=== PATIENT | male | born 1990 ===

== ENCOUNTER 2021-11-09 09:41 | Emergency (ER) | payer OTHER ==
[2021-11-09] MEDS ORDERED: ONDANSETRON 4 MG/2 ML INJ IV ONE (10:35)
[2021-11-09] MEDS ORDERED: SODIUM CHLORIDE 0.9% 1000 ML 1,000 ML IV ONE (10:35)
[2021-11-09] MEDS ORDERED: FAMOTIDINE 20 MG TAB PO ONE (10:36)
--- NOTE | 2021-11-09 10:38 | Emergency Department Report ---
ED Abdominal Pain HPI - General Chief Complaint: Nausea/Vomiting/Diarrhea Stated Complaint: ABD PAIN/VOMITING PUI?: No Time Seen by Provider: 11/09/21 10:16 Source: patient Mode of arrival: Ambulatory Limitations: No Limitations - History of Present Illness Initial Comments: 31-year-old male presents to the ER today with complaints of epigastric pain. Patient states that his pain started about 1 week ago. He describes it as a constant nonradiating burning pain. He states that this morning he vomited about 5 times. He has noticed that when he would try to eat the pain would get worse. Patient states that he has had similar symptoms off and on in the past and typically when he takes Tums it helps but in the past week the Tums have not been helping. He states that his emesis is mainly been bilious. He denies any hematemesis or coffee-ground emesis. His last bowel movement was yesterday and normal. He states that he drinks alcohol socially. He does smoke tobacco but denies any illicit drug use. He denies any abdominal surgeries in the past. He denies any known history of PUD. MD Complaint: abdominal pain -: week(s) (1) - Related Data Previous Rx's Medication Instructions Recorded Last Taken Type Famotidine [Pepcid] 20 mg PO BID #30 tablet 11/09/21 Unknown Rx Ondansetron [Zofran Odt] 4 mg PO Q8HR PRN #15 tab.rapdis 11/09/21 Unknown Rx Pantoprazole [Protonix] 40 mg PO QDAY #30 tablet 11/09/21 Unknown Rx Sucralfate [Carafate] 1 gm PO Q6HR #60 tablet 11/09/21 Unknown Rx Allergies Allergy/AdvReac Type Severity Reaction Status Date / Time No Known Allergies Allergy Verified 11/09/21 10:08 ED Review of Systems ROS: Stated complaint: ABD PAIN/VOMITING Other details as noted in HPI Comment: All other systems reviewed and negative Constitutional: denies: chills, diaphoresis, fever, malaise, weakness Eyes: denies: eye pain, eye discharge, vision change ENT: denies: ear pain, throat pain Respiratory: denies: cough, shortness of breath, wheezing Cardiovascular: denies: chest pain, palpitations Gastrointestinal: abdominal pain, nausea, vomiting. denies: diarrhea, constipation, hematemesis, melena, hematochezia Genitourinary: denies: urgency, dysuria, frequency, hematuria, discharge, testicular pain, testicular mass Musculoskeletal: denies: back pain, joint swelling, arthralgia Skin: denies: rash, lesions, change in color, change in hair/nails, pruritus Neurological: denies: headache, weakness, numbness, paresthesias, confusion, abn ormal gait Psychiatric: denies: anxiety, depression, auditory hallucinations, visual hallucinations, homicidal thoughts, suicidal thoughts Hematological/Lymphatic: denies: easy bleeding, easy bruising, swollen glands ED Past Medical Hx - Past Medical History Previous Medical History?: No - Surgical History Past Surgical History?: No - Medications Home Medications: Home Medications Medication Instructions Recorded Confirmed Last Taken Type Famotidine [Pepcid] 20 mg PO BID #30 tablet 11/09/21 Unknown Rx Ondansetron [Zofran Odt] 4 mg PO Q8HR PRN #15 tab.rapdis 11/09/21 Unknown Rx Pantoprazole [Protonix] 40 mg PO QDAY #30 tablet 11/09/21 Unknown Rx Sucralfate [Carafate] 1 gm PO Q6HR #60 tablet 11/09/21 Unknown Rx ED Physical Exam - General Limitations: No Limitations General appearance: alert, in no apparent distress - Head Head exam: Present: atraumatic, normocephalic, normal inspection - Neck Neck exam: Present: normal inspection, full ROM. Absent: meningismus - Respiratory Respiratory exam: Present: normal lung sounds bilaterally. Absent: respiratory distress, wheezes, rales, rhonchi, stridor - Cardiovascular Cardiovascular Exam: Present: regular rate, normal rhythm, normal heart sounds - GI/Abdominal GI/Abdominal exam: Present: soft, tenderness (epigastric ). Absent: distended, guarding, rebound - Neurological Exam Neurological exam: Present: alert, oriented X3, CN II-XII intact, normal gait - Psychiatric Psychiatric exam: Present: normal affect, normal mood - Skin Skin exam: Present: intact ED Course Vital Signs 11/09/21 10:05 Temperature 98.7 F Pulse Rate 82 Respiratory 14 Rate Blood Pressure 133/81 O2 Sat by Pulse 98 Oximetry ED Medical Decision Making - Lab Data Result diagrams: 11/09/21 11:00 11/09/21 11:00 - Radiology Data Radiology results: report reviewed Patient: ISAAC HENRY MR#: [id number] : 1990 Acct:[id number] Age/Sex: 31 / M ADM Date: 11/09/21 Loc: ED Attending Dr: Ordering Physician: SARAH ROSEN Date of Service: 11/09/21 Procedure(s): US abdomen limited Accession Number(s): [id number] cc: SARAH ROSEN ULTRASOUND ABDOMEN, LIMITED (RIGHT UPPER QUADRANT) INDICATION: Epigastric pain. COMPARISON: None available. FINDINGS: Pancreas: Visualized portion shows no significant abnormality. Liver: Normal in size with generalized increased echotexture. No focal lesions. Normal portal venous flow. Gallbladder: No significant abnormality. Sonographic Gruber's sign: Not performed. Bile ducts: No significant abnormality. Common Bile Duct measures 1.7 mm. Free fluid: None. Additional Findings: None. IMPRESSION: 1. No acute findings to explain the patient's epigastric pain. 2. Increased hepatic echotexture most commonly represent steatosis. Signer Name: Jerald Cantu MD Signed: 11/09/2021 12:46 PM Workstation Name: [id number] Transcribed By: [place] Dictated By: Jerald Cantu MD Electronically Authenticated By: Jerald Cantu MD Signed Date/Time: 11/09/21 1246 DD/ 1244 TD/TT: - Medical Decision Making 1320: Patient reports feeling better after IV fluids and meds. He is currently not toxic, not in any acute distress, and he is neuro intact Repeat Abd exam soft and non tender. All labs reviewed -- mild leukocytosis with a white count of 13.9 otherwise CBC unremarkable. CMP shows alk phos of 130 but otherwise no significant abnormality. Gallbladder US showed No acute findings to explain the patient's epigastric pain. 2. Increased hepatic echotexture most commonly represent steatosis. Patient symptoms may be related to gastritis/PUD at this time. CT abd pelvis (as his repeat abd exam normal), nor additional work up, admission nor emergent surgical/GI consult indicated at this time. Discussed all results, suspected dx and tx plan with patient. He will be given referral info to PCP and GI for follow up if his symptoms persist but he understands to return to ED if worse. Critical care attestation.: If time is entered above; I have spent that time in minutes in the direct care of this critically ill patient, excluding procedure time. ED Disposition Clinical Impression: Epigastric pain, Gastritis Disposition: 01 HOME / SELF CARE / HOMELESS Is pt being admited?: No Does the pt Need Aspirin: No Condition: Stable Instructions: Gastritis, Adult, [id number], Peptic Ulcer, [id number], Abdominal Pain, Adult, [id number] Additional Instructions: I recommend taking the Pepcid, the Protonix and Carafate as prescribed. Take the Zofran as needed for nausea and vomiting. Recommend 9 the next 2 weeks you try to avoid any caffeinated products, acidic and spicy foods and alcohol. Recommend follow-up with the primary care doctor and/or the GI specialist if your symptoms persist. Return sooner if your symptoms worsens in any way. Prescriptions: Sucralfate [Carafate] 1 gm PO Q6HR #60 tablet Famotidine [Pepcid] 20 mg PO BID #30 tablet Pantoprazole [Protonix] 40 mg PO QDAY #30 tablet Ondansetron [Zofran Odt] 4 mg PO Q8HR PRN #15 tab.rapdis PRN Reason: Vomiting Referrals: DAVID BOLAND MD [Staff Physician] - 3-5 Days [facility] [Provider Group] - 3-5 Days Forms: Work/School Release Form(ED) Time of Disposition: 13:17
[2021-11-09] MEDS ORDERED: SUCRALFATE 1 GM TAB PO ONE (11:00)
[2021-11-09 11:53] LABS: Basophils # (Auto) 0.1 K/mm3 (0.0-0.1); Basophils % (Auto) 0.4 % (0.0-1.8); Eosinophils # (Auto) 0.1 K/mm3 (0.0-0.4); Eosinophils % (Auto) 0.5 % (0.0-4.3); Hematocrit 44.9 % (35.5-45.6); Hemoglobin 14.9 gm/dl (11.8-15.2); Lymphocytes # (Auto) 3.6 K/mm3 (1.2-5.4); Lymphocytes % (Auto) 25.7 % (13.4-35.0); Mean Corpuscular HGB Conc 33 % (32-34); Mean Corpuscular Volume 89 fl (84-94); Monocytes # (Auto) 0.8 K/mm3 (0.0-0.8); Monocytes % (Auto) 5.4 % (0.0-7.3); Platelet Count 405 K/mm3 (140-440); Red Blood Count 5.06 M/mm3 (3.65-5.03)
[2021-11-09 12:08] LABS: Alanine Aminotransferase 39 units/L (7-56); Albumin 5.1 g/dL (3.9-5); BUN/Creatinine Ratio 21; Blood Urea Nitrogen 19 mg/dL (9-20); Calcium 10.5 mg/dL (8.4-10.2); Hemolysis Index 9
--- NOTE | 2021-11-09 12:50 | Ultrasound Report ---
ULTRASOUND ABDOMEN, LIMITED (RIGHT UPPER QUADRANT) INDICATION: Epigastric pain. COMPARISON: None available. FINDINGS: Pancreas: Visualized portion shows no significant abnormality. Liver: Normal in size with generalized increased echotexture. No focal lesions. Normal portal venous flow. Gallbladder: No significant abnormality. Sonographic Gruber's sign: Not performed. Bile ducts: No significant abnormality. Common Bile Duct measures 1.7 mm. Free fluid: None. Additional Findings: None. IMPRESSION: 1. No acute findings to explain the patient's epigastric pain. 2. Increased hepatic echotexture most commonly represent steatosis. Signer Name: Jerald Cantu MD Signed: 11/09/2021 12:46 PM Workstation Name: [id number]
[2021-11-09 13:36] VITALS: BP 143/81
== END 2021-11-09 13:36 | disposition home or self-care (01) ==
LOC: ED 09:41
DX: R10.13 Epigastric pain (principal); K29.70 Gastritis, unspecified, without bleeding
CPT/HCPCS: 36415; 76705; 80053; 83690; 85025; 96361; 96374; 99284; J2405; J7030; Q0162